=== PATIENT | female | born 1990 | race Caucasian/White ===

== ENCOUNTER 2020-07-23 11:00 | Inpatient (IN) | payer OTHER ==
[2020-07-23 12:13] VITALS: BMI 37.1
[2020-07-23] MEDS ORDERED: morphine SULFATE/PF 0.5 MG/ML (2cc Syringe - QUVA) ONE (13:11)
[2020-07-23] MEDS ORDERED: KETOROLAC TROMETHAMINE 30 MG/1 ML VIAL ONE (13:16)
[2020-07-23] MEDS ORDERED: ceFAZolin SODIUM 1 GM VIAL ONE (13:16)
[2020-07-23] MEDS ORDERED: PHENYLEPHRINE HCL 10 MG/1 ML SINGLE DOSE VIAL ONE (13:16)
[2020-07-23] MEDS ORDERED: OXYTOCIN 10 UNITS/ML VIAL ONE ×2 (13:16→14:08)
[2020-07-23] MEDS ORDERED: CITRIC ACID/SODIUM CITRATE 30 ML UNIT-DOSE CUP PO ONE (13:18)
[2020-07-23] MEDS ORDERED: morphine SULFATE/PF 0.5 MG/ML (2cc Syringe - QUVA) EP ONE (13:30)
[2020-07-23] MEDS ORDERED: ELECTROLYTE-148 SOLN 1,000 ML IV SCH (13:30)
[2020-07-23] MEDS ORDERED: oxyCODONE HCL 5 MG TABLET PO PRN ×2 (14:47)
[2020-07-23] MEDS ORDERED: METHYLERGONOVINE MALEATE 0.2 MG/1 ML AMP IM PRN (14:47)
[2020-07-23] MEDS ORDERED: IBUPROFEN 800 MG/8 ML IJ IVPB PRN (14:47)
[2020-07-23] MEDS ORDERED: IBUPROFEN 600 MG TABLET (FP) PO PRN (14:58)
[2020-07-23] MEDS ORDERED: ONDANSETRON 4 MG/2 ML VIAL IVPUSH PRN (14:58)
[2020-07-23] MEDS ORDERED: ACETAMINOPHEN 325 MG TABLET (FP) PO PRN (14:58)
[2020-07-23] MEDS ORDERED: OXYTOCIN 20 UNITS in 0.9% NS 20 UNIT/1,000 ML INFUS.BAG IV SCH (15:00)
[2020-07-23] MEDS ORDERED: ACETAMINOPHEN 1000 MG/100 ML VIAL (NON FORMULARY) IVPB ONE (15:01)
[2020-07-23] MEDS ORDERED: SENNOSIDES/DOCUSATE COMBO (SENNA PLUS) TABLET (UD) PO PRN (22:00)
[2020-07-24 08:46] LABS: BASO % 0.3 % (0-2.0); EOS % 0.3 % (0-4.5); HEMATOCRIT 24.3 % (32.4-45.2); LYMPH % 19.2 % (8-40); MCH 29.8 pg (25.7-33.7); MCHC 33.1 g/dl (32.0-36.0); MONO % 7.9 % (3.8-10.2); NEUT % 72.3 % (42.8-82.8); PLATELET COUNT 179 K/MM3 (134-434); RBC 2.69 M/mm3 (3.60-5.2); WHITE BLOOD COUNT 7.1 K/mm3 (4.0-10.0)
[2020-07-24] MEDS ORDERED: DIPHTH,PERTUSS(ACELL),TET 0.5 ML DISP.SYRIN IM ONE (10:00)
[2020-07-24] MEDS ORDERED: FLU VACCINE (FLULAVAL) PF 60 MCG/0.5 ML SYRINGE 2020-2021 IM ONE (10:00)
[2020-07-24] MEDS: IBUPROFEN 600 MG TABLET (FP) PO PRN ×3 (10:51→20:46)
[2020-07-24] MEDS: ACETAMINOPHEN 325 MG TABLET (FP) PO PRN ×3 (10:52→20:46)
[2020-07-24] MEDS: SIMETHICONE 80 MG TAB.CHEW (FP) PO PRN ×2 (10:52→20:46)
[2020-07-24] MEDS ORDERED: BISACODYL 10 MG SUPP.RECT RC PRN (14:47)
[2020-07-25] MEDS: ACETAMINOPHEN 325 MG TABLET (FP) PO PRN ×3 (01:52→12:00)
[2020-07-25] MEDS: IBUPROFEN 600 MG TABLET (FP) PO PRN ×3 (01:52→11:59)
[2020-07-25] MEDS: SIMETHICONE 80 MG TAB.CHEW (FP) PO PRN ×3 (01:53→11:59)
[2020-07-25 10:21] VITALS: BP 137/80; PULSE 87; TEMP 98.3
== END 2020-07-25 14:00 | disposition home or self-care (01) | DRG 540 ==
LOC: JLDR 11:00 → J3W 16:03
PROVIDERS: ADMIT Obstetrics & Gynecology; ATTEND Obstetrics & Gynecology
PROC: 10D00Z1 Extraction of Products of Conception, Low, Open Approach (ICD-10-PCS; principal; 2020-07-23)
PROC: 0DNW0ZZ Release Peritoneum, Open Approach (ICD-10-PCS; 2020-07-23)
DX: O34.219 Maternal care for unspecified type scar from previous cesarean delivery (principal); O36.63X0 Maternal care for excessive fetal growth, third trimester, not applicable or unspecified; O99.892 Other specified diseases and conditions complicating childbirth; N73.6 Female pelvic peritoneal adhesions (postinfective); O69.81X0 Labor and delivery complicated by cord around neck, without compression, not applicable or unspecified; Z3A.39 39 weeks gestation of pregnancy; Z37.0 Single live birth
CPT/HCPCS: 36415; 85025; 88307-TC; 90715; G0008; J0131; Q2036